=== PATIENT | male | born 1975 | race Caucasian/White ===

== ENCOUNTER 2018-05-19 08:02 | Emergency (ER) | payer OTHER ==
[2018-05-19 08:40] LABS: ABG OXYGEN SATURATION 25.5 % (95.0-99.0); PCO2,VENOUS BLOOD GAS 51 (35-48); PH,VENOUS BLOOD GAS 7.413 (7.350-7.450)
[2018-05-19 08:41] LABS: BASOPHILS % (AUTO) 1.5 % (0.0-5.0); LYMPHOCYTES % (AUTO) 31.7 % (21.0-51.0); MEAN CORPUSCULAR HGB CONC 32.4 g/dL (32.0-36.0); MEAN CORPUSCULAR VOLUME 86.3 fL (79-99); MONOCYTES % (AUTO) 8.8 % (3.0-13.0); PLATELET COUNT (AUTO) 181 K/uL (130-400); RED BLOOD CELL COUNT(AUTO) 5.09 MIL/uL (4.50-6.20); RED CELL DISTRIBUTION WIDTH 14.5 % (11.0-15.5)
[2018-05-19 08:53] LABS: POTASSIUM 3.9 mmol/L (3.5-5.1)
[2018-05-19 08:56] LABS: APPEARANCE,URINE Clear (CLEAR); BILIRUBIN,URINE Negative (NEGATIVE); COLOR,URINE Yellow (YELLOW); GLUCOSE, URINE (UA) Negative (NEGATIVE); KETONES,URINE Trace mg/dL (NEGATIVE); LEUKOCYTE ESTERASE ,URINE Negative (NEGATIVE); NITRATE,URINE Negative (NEGATIVE); OCCULT BLOOD,URINE Negative (NEGATIVE); PH,URINE 7.5 (5.0-8.0); PROTEIN,URINE Negative (NEGATIVE)
[2018-05-19 09:18] LABS: BACTERIA,URINE Rare /HPF (None Seen); RBC,URINE 0-1 /HPF (0-1); SQUAMOUS EPITHELIAL CELL,UR Rare /HPF (0-2); WBC,URINE 0-1 /HPF (0-1)
== END 2018-05-19 10:08 | disposition home or self-care (01) ==
LOC: EDH 08:02
DX: F41.9 Anxiety disorder, unspecified (principal); R42 Dizziness and giddiness; F43.10 Post-traumatic stress disorder, unspecified; Z87.891 Personal history of nicotine dependence
CPT/HCPCS: 36415; 80048; 81001; 82803; 84484; 85025; 93005